=== PATIENT | female | born 1970 | race Caucasian/White ===

== ENCOUNTER → 2016-06-17 | Outpatient (REF) | payer OTHER | LOC: M SFHCLERA 12:18 | PROVIDERS: ATTEND Nurse Practitioner Family | DX: R05 Cough (principal) ==

== ENCOUNTER → 2016-06-26 | Outpatient (CLI) | payer OTHER ==
[2016-06-26 12:24] LABS: FREE T4 0.95 NG/DL (0.76-1.46)
== END ==
LOC: M LRY 07:57
PROVIDERS: ATTEND Internal Medicine Endocrinology, Diabetes & Metabolism
DX: E06.3 Autoimmune thyroiditis (principal)

== ENCOUNTER → 2016-08-13 | Outpatient (REF) | payer OTHER ==
[2016-08-14 12:16] LABS: ALBUMIN 3.7 GM/DL (3.2-5.2); ALBUMIN/GLOBULIN RATIO 1.16 (1.00-1.93); ALKALINE PHOSPHATASE 95 U/L (45-117); ALT/SGPT 26 U/L (12-78); ANION GAP 7 MEQ/L (8-16); AST/SGOT 18 U/L (15-37); BILIRUBIN,TOTAL 0.4 MG/DL (0.2-1.0); BLOOD UREA NITROGEN 8 MG/DL (7-18); CALCIUM LEVEL 8.6 MG/DL (8.5-10.1); CARBON DIOXIDE LEVEL 29 MEQ/L (21-32); CHLORIDE LEVEL 104 MEQ/L (98-107); CHOLESTEROL LEVEL 218 MG/DL (<200); CREATININE FOR GFR 0.89 MG/DL (0.55-1.02); GLOMERULAR FILTRATION RATE > 60.0 (>58); GLUCOSE, FASTING 104 MG/DL (70-105); POTASSIUM SERUM 4.1 MEQ/L (3.5-5.1); SODIUM LEVEL 140 MEQ/L (136-145); TOTAL PROTEIN 6.9 GM/DL (6.4-8.2); TRIGLYCERIDES LEVEL 146 MG/DL (<150)
== END ==
LOC: M SFHCLERA 15:33
PROVIDERS: ATTEND Family Medicine
DX: E03.9 Hypothyroidism, unspecified (principal)

== ENCOUNTER → 2016-08-13 | Outpatient (CLI) | payer OTHER ==
[2016-08-13 12:31] LABS: FREE T4 0.69 NG/DL (0.76-1.46)
== END ==
LOC: M LRY 10:23
PROVIDERS: ATTEND Physician Assistant Medical
DX: E06.3 Autoimmune thyroiditis (principal)

== ENCOUNTER → 2016-11-01 | Outpatient (CLI) | payer OTHER ==
[2016-11-01 12:44] LABS: FREE T4 1.05 NG/DL (0.76-1.46)
== END ==
LOC: M LRY 10:22
PROVIDERS: ATTEND Internal Medicine Endocrinology, Diabetes & Metabolism
DX: E06.3 Autoimmune thyroiditis (principal)

== ENCOUNTER → 2017-02-20 | Outpatient (CLI) | payer OTHER ==
[2017-02-20 12:00] LABS: FREE T4 0.93 NG/DL (0.76-1.46)
== END ==
LOC: M LRY 08:00
PROVIDERS: ATTEND Internal Medicine Endocrinology, Diabetes & Metabolism
DX: E06.3 Autoimmune thyroiditis (principal)

== ENCOUNTER → 2017-05-29 | Outpatient (REF) | payer OTHER | LOC: M SFHCLUC 11:32 | DX: J02.9 Acute pharyngitis, unspecified (principal) ==

== ENCOUNTER → 2017-06-26 | Outpatient (CLI) | payer OTHER | LOC: M LRY 07:52 | DX: E06.3 Autoimmune thyroiditis (principal) | CPT/HCPCS: 84443 ==

== ENCOUNTER → 2017-08-23 | Outpatient (CLI) | payer OTHER ==
[2017-08-23 16:58] LABS: THYROID STIMULATING HORMONE 0.302 uIU/ML (0.358-3.740)
[2017-08-23 16:58] LABS: FREE T4 1.36 NG/DL (0.76-1.46)
== END ==
LOC: M LRY 12:16
DX: E06.3 Autoimmune thyroiditis (principal)
CPT/HCPCS: 84443

== ENCOUNTER → 2017-08-28 | Outpatient (CLI) | payer OTHER ==
[2017-08-28 21:07] LABS: HEMATOCRIT 38.7 % (36.0-47.0); HEMOGLOBIN 13.1 g/dl (12.0-15.5); MEAN CORPUSCULAR HEMOGLOBIN 31.3 pg (27.0-33.0); MEAN CORPUSCULAR HGB CONC 33.9 g/dl (32.0-36.5); MEAN CORPUSCULAR VOLUME 92.4 fl (80.0-96.0); PLATELET COUNT, AUTOMATED 223 10^3/uL (150-450); RED BLOOD COUNT 4.19 10^6/uL (4.00-5.40); RED CELL DISTRIBUTION WIDTH 11.9 % (11.5-14.5)
[2017-08-28 21:13] LABS: ALBUMIN 3.8 GM/DL (3.2-5.2); ALBUMIN/GLOBULIN RATIO 1.06 (1.00-1.93); ALKALINE PHOSPHATASE 102 U/L (45-117); ALT/SGPT 28 U/L (12-78); ANION GAP 4 MEQ/L (8-16); AST/SGOT 23 U/L (7-37); BILIRUBIN,DIRECT < 0.1 MG/DL (0.0-0.2); BILIRUBIN,TOTAL 0.4 MG/DL (0.2-1.0); BLOOD UREA NITROGEN 10 MG/DL (7-18); CALCIUM LEVEL 9.2 MG/DL (8.5-10.1); CARBON DIOXIDE LEVEL 31 MEQ/L (21-32); CHLORIDE LEVEL 105 MEQ/L (98-107); CREATININE FOR GFR 1.01 MG/DL (0.55-1.30); GLOMERULAR FILTRATION RATE > 60.0 (>58); GLUCOSE, FASTING 83 MG/DL (70-100); PHOSPHORUS LEVEL 3.9 MG/DL (2.5-4.9); POTASSIUM SERUM 4.3 MEQ/L (3.5-5.1); SODIUM LEVEL 140 MEQ/L (136-145); TOTAL PROTEIN 7.4 GM/DL (6.4-8.2)
== END ==
LOC: M LRY 16:56
DX: Z79.899 Other long term (current) drug therapy (principal); B35.1 Tinea unguium
CPT/HCPCS: 80076

== ENCOUNTER → 2017-11-26 | Outpatient (REF) | payer OTHER ==
[2017-11-26 20:41] LABS: AMORPHOUS SEDIMENT LARGE (NEGATIVE); APPEARANCE, URINE TURBID (CLEAR); BACTERIA, URINE AUTO 1+ (NEGATIVE); BILIRUBIN, URINE AUTO NEGATIVE (NEGATIVE); BLOOD, URINE BLOOD 1+ (NEGATIVE); COLOR, URINE YELLOW (YELLOW); GLUCOSE, URINE (UA) AUTO NEGATIVE (NEGATIVE); KETONE, URINE AUTO NEGATIVE (NEGATIVE); LEUKOCYTE ESTERASE, URINE AUTO TRACE (NEGATIVE); MUCUS, URINE SMALL (NEGATIVE); NITRITE, URINE AUTO NEGATIVE (NEGATIVE); PROTEIN, URINE AUTO NEGATIVE (NEGATIVE); RBC, URINE AUTO 8 /HPF (0-3); SPECIFIC GRAVITY URINE AUTO 1.021 (1.002-1.035); SQUAMOUS EPITHELIAL CELL UR AU 17 /HPF (0-6); UROBILINOGEN, URINE AUTO 0.2 mg/dL (0.0-2.0); WBC, URINE AUTO 7 /HPF (0-3)
== END ==
LOC: M SFHCLERA 16:19
DX: R60.0 Localized edema (principal)

== ENCOUNTER → 2017-11-28 | Outpatient (CLI) | payer OTHER | LOC: M LRY 08:10 | DX: R60.0 Localized edema (principal) | CPT/HCPCS: 76830 ==

== ENCOUNTER → 2017-11-29 | Outpatient (REF) | payer OTHER | LOC: M SFHCLERA 12:44 | DX: R82.90 Unspecified abnormal findings in urine (principal) ==

== ENCOUNTER → 2018-01-15 | Outpatient (REF) | payer OTHER ==
[2018-01-15 20:10] LABS: THYROID STIMULATING HORMONE 0.863 uIU/ML (0.358-3.740)
== END ==
LOC: M SFHCLERA 16:57
DX: E03.9 Hypothyroidism, unspecified (principal)

== ENCOUNTER → 2018-07-22 | Outpatient (REF) | payer OTHER | LOC: M LAB REF 09:07 | PROVIDERS: ATTEND Physician Assistant | DX: K22.70 Barrett's esophagus without dysplasia (principal) ==

== ENCOUNTER → 2018-07-28 | Outpatient (REF) | payer OTHER ==
[2018-07-28 20:48] LABS: CHOLESTEROL LEVEL 187 MG/DL (<200); CHOLESTEROL RISK RATIO 3.978 (<5); HDL CHOLESTEROL 47 MG/DL (>40); LDL CHOLESTEROL 117 MG/DL (<100); NON-HDL-C 140 MG/DL; THYROID STIMULATING HORMONE 0.041 uIU/ML (0.358-3.740); TRIGLYCERIDES LEVEL 115 MG/DL (<150)
[2018-07-28 21:02] LABS: HEMOGLOBIN A1c 5.2 %
[2018-07-30 08:06] LABS: HEPATITIS A IgG TOTAL Negative (Negative); HERPES ZOSTER, VARICELLA IgG 625 index (Immune >165)
[2018-07-30 10:12] LABS: HEPATITIS B SURFACE ANTIBODY NEGATIVE (POSITIVE)
== END ==
LOC: M SFHCLERA 16:56
PROVIDERS: ATTEND Family Medicine
DX: E03.9 Hypothyroidism, unspecified (principal); E55.9 Vitamin D deficiency, unspecified; E66.09 Other obesity due to excess calories; Z01.84 Encounter for antibody response examination

== ENCOUNTER → 2018-09-25 | Outpatient (REF) | payer OTHER | LOC: M SFHCLERA 16:13 | PROVIDERS: ATTEND Family Medicine | DX: E03.9 Hypothyroidism, unspecified (principal) ==

== ENCOUNTER → 2018-09-30 | Outpatient (REF) | payer OTHER ==
[2018-09-30 22:55] LABS: CHLAMYDIA DNA AMPLIFICATION NEGATIVE (NEGATIVE); GC DNA AMPLIFICATION NEGATIVE (NEGATIVE)
== END ==
LOC: M SFHCLERA 16:53
PROVIDERS: ATTEND Nurse Practitioner Family
DX: R30.0 Dysuria (principal); N94.9 Unspecified condition associated with female genital organs and menstrual cycle

== ENCOUNTER → 2018-11-03 | Outpatient (REF) | payer OTHER | LOC: M SFHCLERA 08:56 | PROVIDERS: ATTEND Family Medicine | DX: E03.9 Hypothyroidism, unspecified (principal) ==

== ENCOUNTER → 2018-12-16 | Outpatient (REF) | payer OTHER | LOC: M SFHCLERA 12:41 | PROVIDERS: ATTEND Family Medicine | DX: E03.9 Hypothyroidism, unspecified (principal) ==

== ENCOUNTER → 2019-01-16 | Outpatient (CLI) | payer OTHER ==
[2019-01-16 11:43] LABS: BLOOD UREA NITROGEN 13 MG/DL (7-18); CREATININE FOR GFR 0.87 MG/DL (0.55-1.30); GLOMERULAR FILTRATION RATE > 60.0 (>58); MAGNESIUM LEVEL 2.1 MG/DL (1.8-2.4)
[2019-01-16 11:55] LABS: VITAMIN B12 LEVEL 452 PG/ML (247-911)
== END ==
LOC: M LRY 07:58
PROVIDERS: ATTEND Internal Medicine Gastroenterology
DX: A04.9 Bacterial intestinal infection, unspecified (principal); R14.0 Abdominal distension (gaseous); K22.70 Barrett's esophagus without dysplasia; E55.9 Vitamin D deficiency, unspecified

== ENCOUNTER → 2019-01-28 | Outpatient (REF) | payer OTHER ==
[2019-01-28 20:13] LABS: BASO # 0.1 10^3/uL (0.0-0.2); BASO % 0.9 % (0.0-1.0); EOS # 0.3 10^3/uL (0.0-0.5); EOS % 3.8 % (0.0-3.0); HEMATOCRIT 40.4 % (36.0-47.0); HEMOGLOBIN 13.7 g/dl (12.0-15.5); LYMPH # 2.4 10^3/uL (1.5-5.0); LYMPH % 36.8 % (24.0-44.0); MEAN CORPUSCULAR HEMOGLOBIN 33.3 pg (27.0-33.0); MEAN CORPUSCULAR HGB CONC 33.9 g/dl (32.0-36.5); MEAN CORPUSCULAR VOLUME 98.1 fl (80.0-96.0); MONO # 0.5 10^3/uL (0.0-0.8); MONO % 7.4 % (0.0-5.0); NEUTROPHILS # 3.4 10^3/uL (1.5-8.5); NEUTROPHILS % 50.8 % (36.0-66.0); PLATELET COUNT, AUTOMATED 207 10^3/uL (150-450); RED BLOOD COUNT 4.12 10^6/uL (4.00-5.40); WHITE BLOOD COUNT 6.6 10^3/uL (4.0-10.0)
[2019-01-28 20:29] LABS: FOLATE 21.9 NG/ML
== END ==
LOC: M SFHCLERA 17:05
PROVIDERS: ATTEND Family Medicine
DX: R53.83 Other fatigue (principal)

== ENCOUNTER → 2019-01-30 | Outpatient (CLI) | payer OTHER ==
[~2019-01-30] MED LIST: E-Z-PAQUE 96% w/w SUSP 176GM BTL As Ordered ONE
--- NOTE | 2019-02-02 14:53 | REP ---
Small bowel follow-through The procedure was performed under the direct supervision of Dr. Edmond. The images were reviewed with Dr. Edmond. The claim manager film shows no organomegaly or pathological masses. The intestinal gas pattern is nonspecific. Liquid barium was administered and the barium column was followed through the small bowel to the level of the terminal ileum. Small bowel transit time is approximately 90 minutes . During fluoroscopy gentle palpation shows all loops are freely movable and pliable. There are no fixed or angulated loops. The small bowel mucosal pattern is normal in course and caliber. There is no transition to suggest a partial small bowel obstruction. Spot filming of the terminal ileum shows it to be unremarkable. Impression: Small bowel follow-through examination within normal limits. 1 minute of fluoro time was utilized for this procedure. Electronically Signed by NICK Quispe 01/30/2019 02:56 P Electronically Signed by Homero Edmond MD 02/02/2019 02:44 P
== END ==
LOC: M RAD 07:47
PROVIDERS: ATTEND Internal Medicine Gastroenterology
DX: E55.9 Vitamin D deficiency, unspecified (principal); K21.9 Gastro-esophageal reflux disease without esophagitis; A04.9 Bacterial intestinal infection, unspecified; R14.0 Abdominal distension (gaseous); K22.70 Barrett's esophagus without dysplasia; K29.60 Other gastritis without bleeding

== ENCOUNTER → 2019-02-12 | Outpatient (CLI) | payer OTHER ==
[2019-02-12 20:38] LABS: FREE T3 2.7 PG/ML (2.2-4.0); FREE T4 1.07 NG/DL (0.76-1.46); THYROID STIMULATING HORMONE 3.89 uIU/ML (0.358-3.740)
== END ==
LOC: M LRY 16:38
PROVIDERS: ATTEND Internal Medicine Endocrinology, Diabetes & Metabolism
DX: E03.8 Other specified hypothyroidism (principal); E06.3 Autoimmune thyroiditis

== ENCOUNTER → 2019-04-06 | Outpatient (REF) | payer OTHER | LOC: M SFHCLERA 17:11 | PROVIDERS: ATTEND Family Medicine | DX: E03.9 Hypothyroidism, unspecified (principal) ==

== ENCOUNTER → 2019-06-29 | Outpatient (CLI) | payer OTHER ==
[2019-06-29 12:15] LABS: FREE T3 2.5 PG/ML (2.2-4.0); FREE T4 1.15 NG/DL (0.76-1.46); THYROID STIMULATING HORMONE 1.76 uIU/ML (0.358-3.740)
== END ==
LOC: M LRY 07:44
PROVIDERS: ATTEND Physician Assistant
DX: E03.9 Hypothyroidism, unspecified (principal)

== ENCOUNTER → 2019-07-09 | Outpatient (REF) | payer OTHER ==
[2019-07-09 20:24] LABS: FOLLICLE STIMULATING HORMONE 6.7 mIU/mL; LUTEINIZING HORMONE 12.2 mIU/mL
== END ==
LOC: M SFHCLERA 17:19
PROVIDERS: ATTEND Family Medicine
DX: R53.83 Other fatigue (principal)

== ENCOUNTER → 2019-09-18 | Outpatient (CLI) | payer OTHER ==
[2019-09-22 17:17] LABS: ANA (HEP2) Positive (.)
== END ==
LOC: M LRY 10:12
PROVIDERS: ATTEND Physician Assistant Medical
DX: R76.0 Raised antibody titer (principal); E03.9 Hypothyroidism, unspecified

== ENCOUNTER → 2020-02-13 | Outpatient (CLI) | payer OTHER ==
--- NOTE | 2020-02-13 16:01 | REP ---
INDICATION: ARM WEAKNESS. COMPARISON: None. TECHNIQUE: AP and lateral views of the cervical spine FINDINGS: Alignment and lordosis maintained. Vertebral bodies intact. Minimal endplate sclerosis and disc space narrowing suggested at C5-6 and C6-7. IMPRESSION: Generalized age-related changes. <Electronically signed by Casey Eid > 02/13/20 [id number]
== END ==
LOC: M WUC 14:32
PROVIDERS: ATTEND Internal Medicine Gastroenterology
DX: M50.322 Other cervical disc degeneration at C5-C6 level (principal); M50.323 Other cervical disc degeneration at C6-C7 level; G83.20 Monoplegia of upper limb affecting unspecified side

== ENCOUNTER → 2020-04-27 | Outpatient (CLI) | payer OTHER | LOC: M LABSMTC 11:29 | PROVIDERS: ATTEND Family Medicine | DX: Z20.828 Contact with and (suspected) exposure to other viral communicable diseases (principal) ==

== ENCOUNTER → 2020-08-18 | Outpatient (CLI) | payer OTHER ==
[2020-08-18 10:38] LABS: FREE T4 1.17 NG/DL (0.76-1.46); THYROID STIMULATING HORMONE 1.17 uIU/ML (0.358-3.740)
[2020-08-18 11:57] LABS: TOTAL 25(OH) VITAMIN D 46.1 NG/ML (30.0-100.0); TOTAL T3 108.4 NG/DL (60.0-181.0)
== END ==
LOC: M WUC 08:02
PROVIDERS: ATTEND Physician Assistant
DX: E55.9 Vitamin D deficiency, unspecified (principal); E03.9 Hypothyroidism, unspecified

== ENCOUNTER → 2020-08-18 | Outpatient (CLI) | payer OTHER ==
--- NOTE | 2020-08-18 08:56 | REP ---
INDICATION: PAIN IN RIGHT FINGERS. COMPARISON: Comparison radiographs of the right thumb October 30, 2010.. TECHNIQUE: Eight views. Four views of each hand. FINDINGS: Four views of the the right match that right hand demonstrate mild posttraumatic deformity of the distal tuft of the thumb. There is early osteoarthritic spurring at the DIP joint of the 5th digit. Overall mineralization pattern is normal. Joint spaces are preserved. No erosive changes seen. A there is a ununited recent appearing fracture of the middle phalanx of the 5th digit with associated soft tissue swelling. No other fracture is seen. Four views of the left hand show overall normal mineralization. Bones, joints, and soft tissues are unremarkable. No left hand fracture seen. IMPRESSION: Recent subacute fracture middle phalanx 5th digit right hand. Old posttraumatic deformity distal phalanx of the thumb on the right. Mild degenerative changes.. <Electronically signed by Wliliam Nichols > 08/18/20 [id number]
[2020-08-18 10:03] LABS: BASO # 0.1 10^3/uL (0.0-0.2); BASO % 0.9 % (0.0-1.0); EOS # 0.2 10^3/uL (0.0-0.5); EOS % 3.3 % (0.0-3.0); HEMATOCRIT 40.9 % (36.0-47.0); HEMOGLOBIN 13.6 g/dl (12.0-15.5); LYMPH # 1.5 10^3/uL (1.5-5.0); LYMPH % 21.9 % (24.0-44.0); MEAN CORPUSCULAR HEMOGLOBIN 31.1 pg (27.0-33.0); MEAN CORPUSCULAR HGB CONC 33.3 g/dl (32.0-36.5); MEAN CORPUSCULAR VOLUME 93.6 fl (80.0-96.0); MONO # 0.6 10^3/uL (0.0-0.8); MONO % 8.8 % (2.0-8.0); NEUTROPHILS # 4.6 10^3/uL (1.5-8.5); NEUTROPHILS % 64.8 % (36.0-66.0); PLATELET COUNT, AUTOMATED 232 10^3/uL (150-450); RED BLOOD COUNT 4.37 10^6/uL (4.00-5.40)
[2020-08-18 10:24] LABS: ALBUMIN 3.5 GM/DL (3.2-5.2); ALT/SGPT 25 U/L (12-78); BILIRUBIN,TOTAL 0.5 MG/DL (0.2-1.0); BLOOD UREA NITROGEN 9 MG/DL (7-18); CALCIUM LEVEL 8.8 MG/DL (8.5-10.1); CARBON DIOXIDE LEVEL 29 MEQ/L (21-32); CHLORIDE LEVEL 105 MEQ/L (98-107); CHOLESTEROL LEVEL 242 MG/DL (<200); CREATININE FOR GFR 0.83 MG/DL (0.55-1.30); GLOMERULAR FILTRATION RATE > 60.0 (>58); GLUCOSE, FASTING 99 MG/DL (70-100); HDL CHOLESTEROL 55 MG/DL (>40); LDL CHOLESTEROL 157 MG/DL (<100); NON-HDL-C 187 MG/DL; POTASSIUM SERUM 4.2 MEQ/L (3.5-5.1); SODIUM LEVEL 138 MEQ/L (136-145); TOTAL PROTEIN 7.4 GM/DL (6.4-8.2); TRIGLYCERIDES LEVEL 149 MG/DL (<150)
== END ==
LOC: M WUC 08:05
PROVIDERS: ATTEND Family Medicine
DX: Z00.00 Encounter for general adult medical examination without abnormal findings (principal); M79.644 Pain in right finger(s)

== ENCOUNTER → 2020-09-08 | Outpatient (REF) | payer OTHER | LOC: M SFHCLERA 11:32 | PROVIDERS: ATTEND Nurse Practitioner Family | DX: R09.81 Nasal congestion (principal) ==

== ENCOUNTER → 2020-10-07 | Outpatient (CLI) | payer OTHER ==
[2020-10-07 16:29] LABS: FREE T4 1.44 NG/DL (0.76-1.46); THYROID STIMULATING HORMONE 0.171 uIU/ML (0.358-3.740); TOTAL 25(OH) VITAMIN D 49.1 NG/ML (30.0-100.0); TOTAL T3 121.2 NG/DL (60.0-181.0)
== END ==
LOC: M WUC 10:49
PROVIDERS: ATTEND Physician Assistant
DX: E55.9 Vitamin D deficiency, unspecified (principal); E03.9 Hypothyroidism, unspecified

== ENCOUNTER → 2021-01-19 | Outpatient (CLI) | payer OTHER ==
[2021-01-19 20:04] LABS: FREE T4 0.95 NG/DL (0.76-1.46); THYROID STIMULATING HORMONE 9.26 uIU/ML (0.358-3.740)
[2021-01-19 20:08] LABS: TOTAL T3 67.5 NG/DL (60.0-181.0)
== END ==
LOC: M WUC 15:22
PROVIDERS: ATTEND Physician Assistant
DX: E03.9 Hypothyroidism, unspecified (principal)

== ENCOUNTER → 2021-03-09 | Outpatient (CLI) | payer OTHER ==
[2021-03-09 20:46] LABS: FREE T3 2.2 PG/ML (2.2-4.0); FREE T4 1.07 NG/DL (0.76-1.46); THYROID STIMULATING HORMONE 11.5 uIU/ML (0.358-3.740)
== END ==
LOC: M WUC 14:51
PROVIDERS: ATTEND Physician Assistant
DX: E03.9 Hypothyroidism, unspecified (principal)

== ENCOUNTER 2021-04-05 12:34 | Outpatient (CLI) | payer OTHER ==
[~2021-04-05] VITALS: Ht 157.5 cm; Wt 97.0 kg
[~2021-04-05 12:34] MED LIST changes: +ACETAMINOPHEN TAB 650MG DOSE (2X325MG) PO ONE; +ALBUTEROL 90 MCG/ACT 8GM HFA INHALER INH PRN; +ALBUTEROL SULFATE 2.5 MG/0.5 ML INH NEB SOLN INH PRN; +CASIRIVIMAB (REGN10933) 600 MG, IMDEVIMAB (REGN10987) 600 MG in NS 250 ML IV ONE; -E-Z-PAQUE 96% w/w SUSP 176GM BTL As Ordered ONE; +EPINEPHrine INJ 1 MG/ML 1ML AMP IM PRN; +NS 1,000 ML IV SCH; +diphenhydrAMINE 50MG/ML VIAL (J1200) IV PRN; +methylPREDNISolone 125MG 2ML VIAL IV PRN
[2021-04-05 13:00] VITALS: BP 125/70
[2021-04-05 13:30] VITALS: BP 122/65
[2021-04-05 14:00] VITALS: BP 118/65
[2021-04-05 15:00] VITALS: BP 108/61
== END 2021-04-05 15:00 | disposition home or self-care (01) ==
LOC: M OPCLI4PR 12:34
PROVIDERS: ATTEND Family Medicine
DX: U07.1 COVID-19 (principal); Z88.5 Allergy status to narcotic agent

== ENCOUNTER → 2021-05-04 | Outpatient (CLI) | payer OTHER ==
[2021-05-04 18:04] LABS: FREE T4 1.3 NG/DL (0.76-1.46); THYROID STIMULATING HORMONE 0.123 uIU/ML (0.358-3.740)
== END ==
LOC: M PLALAB 14:41
PROVIDERS: ATTEND Physician Assistant
DX: E03.9 Hypothyroidism, unspecified (principal)

== ENCOUNTER → 2021-10-03 | Outpatient (REF) | payer OTHER | LOC: M WUC 15:30 | PROVIDERS: ATTEND Nurse Practitioner Family | DX: R60.0 Localized edema (principal) ==

== ENCOUNTER → 2021-11-08 | Outpatient (REF) | payer OTHER | LOC: M SFHCPLAZ 13:09 | PROVIDERS: ATTEND Physician Assistant | DX: R30.0 Dysuria (principal) ==

== ENCOUNTER → 2021-11-08 | Outpatient (CLI) | payer OTHER | LOC: M PLALAB 11:59 | PROVIDERS: ATTEND Student in an Organized Health Care Education/Training Program | DX: R60.0 Localized edema (principal) ==

== ENCOUNTER → 2022-02-19 | Outpatient (CLI) | payer OTHER ==
[2022-02-19 18:11] LABS: BASO # 0.1 10^3/uL (0.0-0.2); BASO % 1.1 % (0.0-1.0); EOS # 0.5 10^3/uL (0.0-0.5); EOS % 6.9 % (0.0-3.0); HEMATOCRIT 42.1 % (36.0-47.0); HEMOGLOBIN 13.7 g/dl (12.0-15.5); LYMPH # 1.7 10^3/uL (1.5-5.0); LYMPH % 26.1 % (24.0-44.0); MEAN CORPUSCULAR HEMOGLOBIN 31.4 pg (27.0-33.0); MEAN CORPUSCULAR HGB CONC 32.5 g/dl (32.0-36.5); MEAN CORPUSCULAR VOLUME 96.6 fl (80.0-96.0); MONO # 0.4 10^3/uL (0.0-0.8); MONO % 6.3 % (2.0-8.0); NEUTROPHILS # 3.9 10^3/uL (1.5-8.5); NEUTROPHILS % 59.3 % (36.0-66.0); PLATELET COUNT, AUTOMATED 224 10^3/uL (150-450); RED BLOOD COUNT 4.36 10^6/uL (4.00-5.40); WHITE BLOOD COUNT 6.5 10^3/uL (4.0-10.0)
[2022-02-19 19:01] LABS: ALBUMIN 3.9 GM/DL (3.2-5.2); ALT/SGPT 27 U/L (12-78); BILIRUBIN,TOTAL 0.7 MG/DL (0.2-1.0); BLOOD UREA NITROGEN 10 MG/DL (7-18); CALCIUM LEVEL 9.4 MG/DL (8.5-10.1); CARBON DIOXIDE LEVEL 28 MEQ/L (21-32); CHLORIDE LEVEL 105 MEQ/L (98-107); CHOLESTEROL LEVEL 303 MG/DL (<200); CHOLESTEROL RISK RATIO 4.967 (<5); CREATININE FOR GFR 0.98 MG/DL (0.55-1.30); FREE T4 0.64 NG/DL (0.76-1.46); GLOMERULAR FILTRATION RATE > 60.0 (>51); GLUCOSE, FASTING 95 MG/DL (70-100); HDL CHOLESTEROL 61 MG/DL (>40); LDL CHOLESTEROL 212 MG/DL (<100); NON-HDL-C 242 MG/DL; POTASSIUM SERUM 4.1 MEQ/L (3.5-5.1); SODIUM LEVEL 138 MEQ/L (136-145); TOTAL PROTEIN 7.4 GM/DL (6.4-8.2); TRIGLYCERIDES LEVEL 151 MG/DL (<150)
== END ==
LOC: M WUC 11:20
PROVIDERS: ATTEND Student in an Organized Health Care Education/Training Program
DX: Z00.00 Encounter for general adult medical examination without abnormal findings (principal); E03.9 Hypothyroidism, unspecified

== ENCOUNTER → 2022-03-02 | Outpatient (CLI) | payer OTHER ==
[~2022-03-02] MED LIST changes: -ACETAMINOPHEN TAB 650MG DOSE (2X325MG) PO ONE; -ALBUTEROL 90 MCG/ACT 8GM HFA INHALER INH PRN; -ALBUTEROL SULFATE 2.5 MG/0.5 ML INH NEB SOLN INH PRN; -CASIRIVIMAB (REGN10933) 600 MG, IMDEVIMAB (REGN10987) 600 MG in NS 250 ML IV ONE; +E-Z-GAS II EFFERVESCENT PACKET (SODIUM BICARB./CITRIC ACID/SIMETHICONE) As Ordered ONE; +E-Z-HD 98% w/w 340GM SUSP BTL As Ordered ONE; +E-Z-PAQUE 96% w/w SUSP 176GM BTL As Ordered ONE; -EPINEPHrine INJ 1 MG/ML 1ML AMP IM PRN; -NS 1,000 ML IV SCH; -diphenhydrAMINE 50MG/ML VIAL (J1200) IV PRN; -methylPREDNISolone 125MG 2ML VIAL IV PRN
== END ==
LOC: M RAD 08:18
PROVIDERS: ATTEND Internal Medicine Gastroenterology
DX: R05.9 Cough, unspecified (principal)

== ENCOUNTER → 2022-08-23 | Outpatient (CLI) | payer OTHER ==
[2022-08-23 13:33] LABS: THYROID STIMULATING HORMONE 1.555 uIU/ML (0.55-4.78)
[2022-08-23 13:34] LABS: FREE T4 1.31 NG/DL (0.89-1.76)
== END ==
LOC: M WUC 10:44
PROVIDERS: ATTEND Internal Medicine
DX: E07.9 Disorder of thyroid, unspecified (principal)

== ENCOUNTER → 2022-08-23 | Outpatient (CLI) | payer OTHER | LOC: M WUC 10:47 | PROVIDERS: ATTEND Student in an Organized Health Care Education/Training Program | DX: R06.02 Shortness of breath (principal) ==

== ENCOUNTER → 2022-09-13 | Outpatient (CLI) | payer OTHER | LOC: M CARPUL 08:16 | PROVIDERS: ATTEND Student in an Organized Health Care Education/Training Program | DX: R06.02 Shortness of breath (principal); I08.1 Rheumatic disorders of both mitral and tricuspid valves ==

== ENCOUNTER → 2022-09-13 | Outpatient (CLI) | payer OTHER ==
[2022-09-13 10:10] LABS: MAGNESIUM LEVEL 1.9 MG/DL (1.8-2.4)
[2022-09-13 10:15] LABS: TOTAL 25(OH) VITAMIN D 30.6 NG/ML (20.0-100.0); VITAMIN B12 LEVEL 354 PG/ML (211-911)
[2022-09-13 10:17] LABS: C REACTIVE PROTEIN QUANTITATIV < 0.40 MG/DL (<1.0)
== END ==
LOC: M LAB 08:21
PROVIDERS: ATTEND Internal Medicine Gastroenterology
DX: K22.70 Barrett's esophagus without dysplasia (principal); K44.9 Diaphragmatic hernia without obstruction or gangrene; K59.1 Functional diarrhea; R63.5 Abnormal weight gain; A04.9 Bacterial intestinal infection, unspecified; E55.9 Vitamin D deficiency, unspecified

== ENCOUNTER → 2022-12-15 | Outpatient (CLI) | payer OTHER ==
[2022-12-15 09:53] LABS: BASO # 0.1 10^3/uL (0.0-0.2); BASO % 0.9 % (0.0-1.0); EOS # 0.4 10^3/uL (0.0-0.5); EOS % 6.6 % (0.0-3.0); HEMATOCRIT 40.5 % (36.0-47.0); HEMOGLOBIN 13.7 g/dl (12.0-15.5); LYMPH # 1.3 10^3/uL (1.5-5.0); LYMPH % 22.7 % (24.0-44.0); MEAN CORPUSCULAR HEMOGLOBIN 31.3 pg (27.0-33.0); MEAN CORPUSCULAR HGB CONC 33.8 g/dl (32.0-36.5); MEAN CORPUSCULAR VOLUME 92.5 fl (80.0-96.0); MONO # 0.4 10^3/uL (0.0-0.8); MONO % 7.6 % (2.0-8.0); NEUTROPHILS # 3.5 10^3/uL (1.5-8.5); NEUTROPHILS % 61.8 % (36.0-66.0); PLATELET COUNT, AUTOMATED 214 10^3/uL (150-450); RED BLOOD COUNT 4.38 10^6/uL (4.00-5.40); WHITE BLOOD COUNT 5.6 10^3/uL (4.0-10.0)
[2022-12-15 10:24] LABS: ALBUMIN 3.9 G/DL (3.2-5.2); ALKALINE PHOSPHATASE 90 U/L (46-116); ALT/SGPT 20 U/L (7.0-40); AST/SGOT 15 U/L (<34); BILIRUBIN,TOTAL 0.8 MG/DL (0.3-1.2); BLOOD UREA NITROGEN 9 MG/DL (9-23); CALCIUM LEVEL 9.3 MG/DL (8.5-10.1); CARBON DIOXIDE LEVEL 30 MMOL/L (20-31); CHLORIDE LEVEL 104 MMOL/L (98-107); CHOLESTEROL LEVEL 210 MG/DL (<200); CHOLESTEROL RISK RATIO 3.34 (<5); GLOMERULAR FILTRATION RATE > 60.0 (>51); GLUCOSE, FASTING 99 MG/DL (60-100); HDL CHOLESTEROL 62.7 MG/DL (>40); LDL CHOLESTEROL 131.7 MG/DL (<100); NON-HDL-C 147.3 MG/DL; SODIUM LEVEL 142 MMOL/L (136-145); TRIGLYCERIDES LEVEL 78 MG/DL (<150)
== END ==
LOC: M LAB 09:04
PROVIDERS: ATTEND Student in an Organized Health Care Education/Training Program
DX: Z00.00 Encounter for general adult medical examination without abnormal findings (principal); E78.5 Hyperlipidemia, unspecified

== ENCOUNTER → 2023-03-05 | Outpatient (CLI) | payer OTHER ==
[2023-03-05 08:39] LABS: THYROID STIMULATING HORMONE 0.038 uIU/ML (0.55-4.78)
[2023-03-05 08:41] LABS: FREE T3 3.3 PG/ML (2.3-4.2)
== END ==
LOC: M LAB 07:39
PROVIDERS: ATTEND Internal Medicine
DX: E03.9 Hypothyroidism, unspecified (principal)

== ENCOUNTER → 2023-06-17 | Outpatient (CLI) | payer OTHER ==
[2023-06-17 17:55] LABS: FREE T4 1.32 NG/DL (0.89-1.76)
[2023-06-17 17:56] LABS: THYROID STIMULATING HORMONE 1.305 uIU/ML (0.55-4.78)
== END ==
LOC: M WUC 14:41
PROVIDERS: ATTEND Internal Medicine
DX: E03.9 Hypothyroidism, unspecified (principal)

== ENCOUNTER → 2023-06-25 | Outpatient (CLI) | payer OTHER | LOC: M WUC 08:08 | PROVIDERS: ATTEND Internal Medicine | DX: R63.5 Abnormal weight gain (principal) ==

== ENCOUNTER → 2023-08-04 | Outpatient (CLI) | payer OTHER ==
[2023-08-04 10:29] LABS: BASO % 0.9 % (0.0-1.0); EOS # 0.1 10^3/uL (0.0-0.5); EOS % 2.8 % (0.0-3.0); HEMATOCRIT 41.1 % (36.0-47.0); LYMPH # 1.2 10^3/uL (1.5-5.0); LYMPH % 26.3 % (24.0-44.0); MEAN CORPUSCULAR HGB CONC 34.1 g/dl (32.0-36.5); MEAN CORPUSCULAR VOLUME 90.9 fl (80.0-96.0); MONO # 0.4 10^3/uL (0.0-0.8); MONO % 7.8 % (2.0-8.0); NEUTROPHILS # 2.9 10^3/uL (1.5-8.5); PLATELET COUNT, AUTOMATED 213 10^3/uL (150-450); RED BLOOD COUNT 4.52 10^6/uL (4.00-5.40); WHITE BLOOD COUNT 4.6 10^3/uL (4.0-10.0)
[2023-08-04 10:53] LABS: IRON (FE) 92 UG/DL (50-170)
[2023-08-04 10:54] LABS: ALKALINE PHOSPHATASE 92 U/L (46-116); ALT/SGPT 19 U/L (7.0-40); AST/SGOT 19 U/L (<34); BLOOD UREA NITROGEN 12 MG/DL (9-23); CALCIUM LEVEL 9.8 MG/DL (8.5-10.1); CARBON DIOXIDE LEVEL 32 MMOL/L (20-31); CHLORIDE LEVEL 108 MMOL/L (98-107); CHOLESTEROL LEVEL 199 MG/DL (<200); CHOLESTEROL RISK RATIO 4.03 (<5); CREATININE FOR GFR 0.98 MG/DL (0.55-1.30); GLOMERULAR FILTRATION RATE > 60.0 (>51); GLUCOSE, FASTING 100 MG/DL (60-100); HDL CHOLESTEROL 49.3 MG/DL (>40); LDL CHOLESTEROL 130.9 MG/DL (<100); NON-HDL-C 149.7 MG/DL; PERCENT SATURATION 28.4 % (13.2-45.0); POTASSIUM SERUM 4.2 MMOL/L (3.5-5.1); SODIUM LEVEL 144 MMOL/L (136-145); TOTAL IRON BINDING CAPACITY 324 UG/DL (250-425); TOTAL PROTEIN 7.1 G/DL (5.7-8.2); TRIGLYCERIDES LEVEL 94 MG/DL (<150)
[2023-08-04 10:55] LABS: THYROID STIMULATING HORMONE 0.053 uIU/ML (0.55-4.78)
[2023-08-04 10:56] LABS: TOTAL 25(OH) VITAMIN D 33.4 NG/ML (20.0-100.0)
== END ==
LOC: M LAB 09:46
PROVIDERS: ATTEND Physician Assistant
DX: Z00.00 Encounter for general adult medical examination without abnormal findings (principal)

== ENCOUNTER → 2023-12-19 | Outpatient (REF) | payer OTHER | LOC: M SFHCLERA 14:58 | PROVIDERS: ATTEND Family Medicine | DX: Z00.00 Encounter for general adult medical examination without abnormal findings (principal) ==

== ENCOUNTER → 2023-12-20 | Outpatient (REF) | payer OTHER ==
[2023-12-20 19:21] LABS: BASO # 0.1 10^3/uL (0.0-0.2); BASO % 1.1 % (0.0-1.0); EOS # 0.4 10^3/uL (0.0-0.5); EOS % 7.2 % (0.0-3.0); HEMATOCRIT 41.3 % (36.0-47.0); HEMOGLOBIN 13.9 g/dl (12.0-15.5); LYMPH # 1.5 10^3/uL (1.5-5.0); LYMPH % 26.8 % (24.0-44.0); MEAN CORPUSCULAR HEMOGLOBIN 30.7 pg (27.0-33.0); MEAN CORPUSCULAR HGB CONC 33.7 g/dl (32.0-36.5); MEAN CORPUSCULAR VOLUME 91.2 fl (80.0-96.0); MONO # 0.4 10^3/uL (0.0-0.8); MONO % 6.5 % (2.0-8.0); NEUTROPHILS # 3.3 10^3/uL (1.5-8.5); NEUTROPHILS % 58.2 % (36.0-66.0); PLATELET COUNT, AUTOMATED 208 10^3/uL (150-450); RED BLOOD COUNT 4.53 10^6/uL (4.00-5.40); WHITE BLOOD COUNT 5.6 10^3/uL (4.0-10.0)
[2023-12-20 19:47] LABS: TOTAL IRON BINDING CAPACITY 299 UG/DL (250-425)
[2023-12-20 19:48] LABS: IRON (FE) 68 UG/DL (50-170); PERCENT SATURATION 22.7 % (13.2-45.0)
[2023-12-20 19:49] LABS: ALBUMIN 3.8 G/DL (3.2-5.2); ALKALINE PHOSPHATASE 95 U/L (46-116); ALT/SGPT 15 U/L (7.0-40); AST/SGOT 15 U/L (<34); BILIRUBIN,TOTAL 0.6 MG/DL (0.3-1.2); BLOOD UREA NITROGEN 8 MG/DL (9-23); CALCIUM LEVEL 9.5 MG/DL (8.5-10.1); CARBON DIOXIDE LEVEL 29 MMOL/L (20-31); CHLORIDE LEVEL 108 MMOL/L (98-107); CHOLESTEROL LEVEL 236 MG/DL (<200); CHOLESTEROL RISK RATIO 5.09 (<5); CREATININE FOR GFR 0.92 MG/DL (0.55-1.30); GLOMERULAR FILTRATION RATE > 60.0 (>51); GLUCOSE, FASTING 89 MG/DL (60-100); HDL CHOLESTEROL 46.3 MG/DL (>40); LDL CHOLESTEROL 164.7 MG/DL (<100); NON-HDL-C 189.7 MG/DL; POTASSIUM SERUM 3.8 MMOL/L (3.5-5.1); SODIUM LEVEL 140 MMOL/L (136-145); TOTAL PROTEIN 6.9 G/DL (5.7-8.2); TRIGLYCERIDES LEVEL 125 MG/DL (<150)
[2023-12-20 19:51] LABS: FREE T4 1.22 NG/DL (0.89-1.76)
[2023-12-20 19:52] LABS: THYROID STIMULATING HORMONE 1.583 uIU/ML (0.55-4.78)
[2023-12-20 19:53] LABS: TOTAL 25(OH) VITAMIN D 27.3 NG/ML (20.0-100.0)
[2023-12-23 16:07] LABS: HOMOCYST(E)INE SERUM 19.2 umol/L (<10.4)
== END ==
LOC: M SFHCLERA 08:51
PROVIDERS: ATTEND Family Medicine
DX: Z00.00 Encounter for general adult medical examination without abnormal findings (principal)

== ENCOUNTER → 2024-01-30 | Outpatient (REF) | payer OTHER | LOC: M LAB REF 10:10 | PROVIDERS: ATTEND Student in an Organized Health Care Education/Training Program | DX: R30.0 Dysuria (principal) ==

== ENCOUNTER → 2024-03-25 | Outpatient (REF) | payer OTHER ==
[2024-03-25 17:50] LABS: FREE T4 1.45 NG/DL (0.89-1.76)
[2024-03-25 17:51] LABS: THYROID STIMULATING HORMONE 0.641 uIU/ML (0.55-4.78)
== END ==
LOC: M LAB REF 16:49 → M LABWUC 16:49
PROVIDERS: ATTEND Internal Medicine
DX: E03.9 Hypothyroidism, unspecified (principal)

== ENCOUNTER → 2024-03-25 | Outpatient (REF) | payer OTHER | LOC: M LAB REF 16:28 | PROVIDERS: ATTEND Nurse Practitioner Family | DX: R30.0 Dysuria (principal) ==

== ENCOUNTER → 2024-11-17 | Outpatient (CLI) | payer OTHER | LOC: M WUC 15:12 | DX: M25.512 Pain in left shoulder (principal) ==

== ENCOUNTER → 2024-12-24 | Outpatient (CLI) | payer OTHER | LOC: M PLARAD 14:36 | DX: M25.512 Pain in left shoulder (principal); M77.8 Other enthesopathies, not elsewhere classified ==

== ENCOUNTER → 2024-12-25 | Outpatient (REF) | payer OTHER ==
[2024-12-25 18:05] LABS: ALT/SGPT 47.0 U/L (7.0-40); AST/SGOT 35.0 U/L (<34); CALCIUM LEVEL 9.4 MG/DL (8.5-10.1); CARBON DIOXIDE LEVEL 32.0 MMOL/L (20-31); CHLORIDE LEVEL 103.0 MMOL/L (98-107); CHOLESTEROL LEVEL 207.0 MG/DL (<200); CHOLESTEROL RISK RATIO 4.55 (<5); CREATININE FOR GFR 0.82 MG/DL (0.55-1.30); GLOMERULAR FILTRATION RATE 85.5 (>51); LDL CHOLESTEROL 145.2 MG/DL (<100); NON-HDL-C 161.6 MG/DL; POTASSIUM SERUM 4.1 MMOL/L (3.5-5.1); SODIUM LEVEL 141.0 MMOL/L (136-145); TRIGLYCERIDES LEVEL 82.0 MG/DL (<150)
[2024-12-25 18:05] LABS: BASO # 0.0 10^3/uL (0.0-0.2); BASO % 0.8 % (0.0-1.0); EOS # 0.1 10^3/uL (0.0-0.5); EOS % 2.1 % (0.0-3.0); LYMPH # 1.5 10^3/uL (1.5-5.0); LYMPH % 30.2 % (24.0-44.0); MONO # 0.4 10^3/uL (0.0-0.8); MONO % 9.0 % (2.0-8.0); NEUTROPHILS # 2.8 10^3/uL (1.5-8.5); NEUTROPHILS % 57.7 % (36.0-66.0); PLATELET COUNT, AUTOMATED 215 10^3/uL (150-450)
[2024-12-25 18:08] LABS: TOTAL 25(OH) VITAMIN D 28.5 NG/ML (20.0-100.0)
[2024-12-25 18:09] LABS: FREE T4 2.33 NG/DL (0.89-1.76)
[2024-12-25 18:29] LABS: ESTIMATED AVERAGE GLUCOSE 91.0 MG/DL (60-110)
== END ==
LOC: M SFHCLERA 09:51
DX: E78.5 Hyperlipidemia, unspecified (principal); E55.9 Vitamin D deficiency, unspecified; M32.9 Systemic lupus erythematosus, unspecified; E03.9 Hypothyroidism, unspecified

== ENCOUNTER → 2025-04-01 | Outpatient (CLI) | payer OTHER ==
[2025-04-01 11:12] LABS: FREE T4 1.43 NG/DL (0.89-1.76)
== END ==
LOC: M PLALAB 08:52
PROVIDERS: ATTEND Internal Medicine
DX: E03.9 Hypothyroidism, unspecified (principal)